=== PATIENT | female | born 1980 | race American Indian/Alaskan Native ===

== ENCOUNTER 2019-01-07 19:53 | Emergency (ER) | payer OTHER ==
[2019-01-07] MEDS ORDERED: DUONEB *Not for PRN Use IH ONE (20:42)
--- NOTE | 2019-01-07 20:43 | Event Note ---
ED Screening Note Date of service: 01/07/19 Time: 20:40 ED Screening Note: This is a 38 y.o. F. that presents to the ER with SOB since last night that is worsening. Nonsmoker LMP 12/28/2018 Received breathing treatment by EMS earlier today at home. This initial assessment/diagnostic orders/clinical plan/treatment(s) is/are subject to change based on patients health status, clinical progression and re- assessment by fellow clinical providers in the ED. Further treatment and workup at subsequent clinical providers discretion. Patient/guardian urged not to elope from the ED as their condition may be serious if not clinically assessed and managed. Initial orders include: CXR, duoneb
--- NOTE | 2019-01-07 21:31 | XRay Report ---
PROCEDURE: XR CHEST ROUTINE 2V TECHNIQUE: PA and lateral chest radiographs were obtained. HISTORY: SOB COMPARISONS: None. FINDINGS: Heart: Normal. Mediastinum/Vessels: Normal. Lungs/Pleural space: Normal. Bony thorax: No acute osseous abnormality. IMPRESSION: No acute cardiopulmonary process seen.. This document is electronically signed by Riya Farnsworth MD., January 07 2019 09:29:47 PM ET
[2019-01-07] MEDS ORDERED: DECADRON IV ONE (22:53)
[2019-01-07] MEDS ORDERED: PROVENTIL IH ONE (22:53)
[2019-01-07] MEDS ORDERED: IBUPROFEN PO ONE (22:53)
[2019-01-07 23:34] LABS: INR 1.02 (0.87-1.13)
[2019-01-07 23:35] LABS: Partial Thromboplastin Time 27.2 Sec. (24.2-36.6)
[2019-01-07 23:37] LABS: Alanine Aminotransferase 10 units/L (7-56); Albumin 3.6 g/dL (3.9-5); BUN/Creatinine Ratio 8; Blood Urea Nitrogen 6 mg/dL (7-17); Calcium 9.6 mg/dL (8.4-10.2); Hemolysis Index 9
[2019-01-08 00:01] LABS: Hematocrit 28.2 % (30.3-42.9); Mean Corpuscular HGB Conc 32 % (30-34); Mean Corpuscular Volume 73 fl (79-97); Platelet Count 275 K/mm3 (140-440); Red Blood Count 3.86 M/mm3 (3.65-5.03); Red Cell Distribution Width 17.7 % (13.2-15.2)
--- NOTE | 2019-01-08 00:31 | Emergency Department Report ---
ED Shortness of Breath HPI - General Chief Complaint: Dyspnea/Respdistress Stated Complaint: SHORTNESS OF BREATH Time Seen by Provider: 01/07/19 20:39 Source: patient Mode of arrival: Ambulatory Limitations: No Limitations - History of Present Illness Initial Comments: pt is a 38 y/o aaf who presents for sob x 1 day sudden onset this after noon no hx of asthma no fever no chills no trauma. symptoms are temporarily relieved by albuterol inhaler, symptom are exacerbated by activity. MD Complaint: shortness of breath Onset/Timin Severity: moderate Pain Scale: 6 Quality: sharp Consistency: constant Improves With: bronchodilators Worsens With: exertion, movement Associated Symptoms: pain with inspiration Treatments Prior to Arrival: none - Related Data Previous Rx's Medication Instructions Recorded Last Taken Type Cyclobenzaprine [Flexeril] 10 mg PO Q8H PRN #21 tablet 06/18/15 Unknown Rx Ibuprofen [Motrin 800 MG tab] 800 mg PO Q8HR PRN #30 tablet 06/18/15 Unknown Rx Acetaminophen/Codeine [Tylenol #3] 1 tab PO Q6H PRN #20 tab 08/17/15 Unknown Rx Naproxen [Naprosyn TAB] 500 mg PO BID #30 tablet 08/17/15 Unknown Rx methOCARBAMOL [Robaxin TAB] 500 mg PO Q6H PRN #20 tablet 08/17/15 Unknown Rx ALBUTEROL Inhaler (OR & NICU) 2 puff IH QID PRN #1 inhalation 01/08/19 Unknown Rx [ProAir HFA Inhaler] Azithromycin [Zithromax Z-ANAND] 250 mg PO DAILY #6 tab 01/08/19 Unknown Rx Ibuprofen [Motrin 800 MG tab] 800 mg PO Q8HR PRN #30 tablet 01/08/19 Unknown Rx Allergies Allergy/AdvReac Type Severity Reaction Status Date / Time No Known Allergies Allergy Unverified 06/18/15 11:30 ED Review of Systems ROS: Stated complaint: SHORTNESS OF BREATH Other details as noted in HPI Constitutional: denies: chills, fever Eyes: denies: eye pain, eye discharge, vision change ENT: denies: ear pain, throat pain Respiratory: shortness of breath, SOB at rest. denies: cough, stridor, wheezing Cardiovascular: dyspnea on exertion Endocrine: no symptoms reported Gastrointestinal: as per HPI. denies: abdominal pain, nausea, vomiting Genitourinary: denies: urgency, dysuria, discharge Musculoskeletal: denies: back pain, joint swelling, arthralgia Skin: denies: rash, lesions Neurological: denies: headache, weakness, paresthesias Psychiatric: denies: anxiety, depression Hematological/Lymphatic: denies: easy bleeding, easy bruising ED Past Medical Hx - Past Medical History Previous Medical History?: No - Surgical History Past Surgical History?: No - Social History Smoking Status: Never Smoker Substance Use Type: None - Medications Home Medications: Home Medications Medication Instructions Recorded Confirmed Last Taken Type Cyclobenzaprine [Flexeril] 10 mg PO Q8H PRN #21 tablet 06/18/15 Unknown Rx Ibuprofen [Motrin 800 MG tab] 800 mg PO Q8HR PRN #30 tablet 06/18/15 Unknown Rx Acetaminophen/Codeine [Tylenol #3] 1 tab PO Q6H PRN #20 tab 08/17/15 Unknown Rx Naproxen [Naprosyn TAB] 500 mg PO BID #30 tablet 08/17/15 Unknown Rx methOCARBAMOL [Robaxin TAB] 500 mg PO Q6H PRN #20 tablet 08/17/15 Unknown Rx ALBUTEROL Inhaler (OR & NICU) 2 puff IH QID PRN #1 inhalation 01/08/19 Unknown Rx [ProAir HFA Inhaler] Azithromycin [Zithromax Z-ANAND] 250 mg PO DAILY #6 tab 01/08/19 Unknown Rx Ibuprofen [Motrin 800 MG tab] 800 mg PO Q8HR PRN #30 tablet 01/08/19 Unknown Rx ED Physical Exam - General Limitations: No Limitations General appearance: alert, in no apparent distress - Head Head exam: Present: atraumatic, normocephalic - Eye Eye exam: Present: normal appearance, PERRL, EOMI Pupils: Present: normal accommodation - ENT ENT exam: Present: mucous membranes moist - Neck Neck exam: Present: normal inspection, full ROM. Absent: tenderness, meningismus, lymphadenopathy, thyromegaly - Respiratory Respiratory exam: Present: normal lung sounds bilaterally, chest wall te nderness, decreased breath sounds. Absent: respiratory distress, wheezes, rales, rhonchi, stridor - Cardiovascular Cardiovascular Exam: Present: regular rate, normal rhythm, normal heart sounds. Absent: systolic murmur, diastolic murmur, rubs, gallop - GI/Abdominal GI/Abdominal exam: Present: soft, normal bowel sounds. Absent: distended, tenderness, bruit, hernia - Rectal Rectal exam: Present: deferred - Extremities Exam Extremities exam: Present: normal inspection, full ROM, normal capillary refill. Absent: tenderness, pedal edema, joint swelling, calf tenderness - Back Exam Back exam: Present: normal inspection, full ROM. Absent: tenderness, CVA tenderness (R), CVA tenderness (L), muscle spasm, paraspinal tenderness, vertebral tenderness, rash noted - Neurological Exam Neurological exam: Present: alert, oriented X3, CN II-XII intact, normal gait, reflexes normal. Absent: motor sensory deficit - Psychiatric Psychiatric exam: Present: normal affect, normal mood - Skin Skin exam: Present: warm, dry, intact, normal color. Absent: rash ED Course Vital Signs 01/07/19 01/07/19 01/07/19 20:13 23:20 23:56 Temperature 98.2 F Pulse Rate 104 H Pulse Rate [ 87 100 H Bilateral Throughout] Respiratory 17 Rate Respiratory 18 18 Rate [Bilateral Throughout] Blood Pressure 127/77 O2 Sat by Pulse 96 Oximetry ED Medical Decision Making - Lab Data Result diagrams: 01/07/19 23:07 01/07/19 23:07 Labs 01/07/19 01/07/19 01/07/19 23:07 23:07 23:07 WBC 10.6 RBC 3.86 Hgb 9.0 L Hct 28.2 L MCV 73 L MCH 23 L MCHC 32 RDW 17.7 H Plt Count 275 Lymph % (Auto) Laminator Preforms [place] % (Auto) Laminator Preforms Eos % (Auto) Laminator Preforms Baso % (Auto) Laminator Preforms Lymph # Laminator Preforms [place] # Laminator Preforms Eos # Laminator Preforms Baso # Laminator Preforms Seg Neutrophils % Laminator Preforms Seg Neutrophils # Laminator Preforms PT 13.1 INR 1.02 APTT 27.2 D-Dimer 651.04 H Sodium 138 Potassium 3.4 L Chloride 101.7 Carbon Dioxide 24 Anion Gap 16 BUN 6 L Creatinine 0.8 Estimated GFR > 60 BUN/Creatinine Ratio 8 Glucose 142 H Calcium 9.6 Total Bilirubin < 0.20 AST 16 ALT 10 Alkaline Phosphatase 94 Total Protein 7.4 Albumin 3.6 L Albumin/Globulin Ratio 0.9 HCG, Qual 01/07/19 23:55 WBC RBC Hgb Hct MCV MCH MCHC RDW Plt Count Lymph % (Auto) [place] % (Auto) Eos % (Auto) Baso % (Auto) Lymph # [place] # Eos # Baso # Seg Neutrophils % Seg Neutrophils # PT INR APTT D-Dimer Sodium Potassium Chloride Carbon Dioxide Anion Gap BUN Creatinine Estimated GFR BUN/Creatinine Ratio Glucose Calcium Total Bilirubin AST ALT Alkaline Phosphatase Total Protein Albumin Albumin/Globulin Ratio HCG, Qual Negative - Radiology Data Radiology results: report reviewed, image reviewed Patient: PATRICK DAVISON MR#: [id number] : 1980 Acct:[id number] Age/Sex: 38 / F ADM Date: 01/07/19 Loc: ED Attending Dr: Ordering Physician: RAHUL LOYA Date of Service: 01/07/19 Procedure(s): XR chest routine 2V Accession Number(s): [id number] cc: RAHUL LOYA Fluoro Time In Minutes: PROCEDURE: XR CHEST ROUTINE 2V TECHNIQUE: PA and lateral chest radiographs were obtained. HISTORY: SOB COMPARISONS: None. FINDINGS: Heart: Normal. Mediastinum/Vessels: Normal. Lungs/Pleural space: Normal. Bony thorax: No acute osseous abnormality. IMPRESSION: No acute cardiopulmonary process seen.. This document is electronically signed by Riya Farnsworth MD., January 07 2019 09:29:47 PM ET Transcribed By: [facility] Dictated By: RIYA FARNSWORTH MD Electronically Authenticated By: RIYA FARNSWORTH MD Signed Date/Time: 01/07/192130 DD/ 01 TD/TT: 01/07/192101 - Medical Decision Making PERC score:7.5, cxr: normal no opacities no infiltrates, Patient: PATRICK DAVISON MR#: [id number] : 1980 Acct:[id number] Age/Sex: 38 / F ADM Date: 01/07/19 Loc: ED Attending Dr: Ordering Physician: JAQUI HENDRIX NP Date of Service: 01/08/19 Procedure(s): CT chest w con Accession Number(s): [id number] cc: JAQUI HENDRIX NP PROCEDURE: CT chest with contrast. TECHNIQUE: Computerized axial tomography of the chest was performed during the IV injection of iodinated nonionic contrast. CT DOSE LENGTH PRODUCT: 941.1 mGycm HISTORY: Shortness of breath, chest pain. COMPARISONS: None. FINDINGS: The trachea and central bronchi appear normal. There are 2 small nodular opacities in the right middle lobe. One is located centrally. The other is pleural-based. The central nodule measures 7.9 mm x 4.3 mm in cross-section. These nodules are not calcified. They are also not highly suspicious. They are indeterminate findings. A follow-up study is recommended to document clearing or stability. There is a small area of consolidation involving the anteromedial portion of the right middle lobe. This could represent pneumonia. The remaining portions of both lungs are clear. There are no pleural effusions. The thoracic aorta has a normal caliber without evidence of dissection. The central pulmonary arteries enhance normally. This study was not done to evaluate for pulmonary embolism. There is no mediastinal adenopathy. The heart size is normal. The adrenal glands are not enlarged. There is a ventral wall hernia in the epigastrium containing fat. There are calcified gallstones visible. The thoracic skeleton appears intact. IMPRESSION: Possible small area of pneumonia in the right middle lobe. 2 small indeterminate nodules in the right middle lobe. Cholelithiasis. Midline ventral wall hernia containing fat. This document is electronically signed by Rico Cullen MD., January 08 2019 01:10:54 AM ET Transcribed By: [facility] Dictated By: RICO CULLEN MD Electronically Authenticated By: RICO CULLEN MD Signed Date/Time: 01/08/19112 DD/ TD/TT: 01/08/1932 Critical care attestation.: If time is entered above; I have spent that time in minutes in the direct care of this critically ill patient, excluding procedure time. ED Disposition Clinical Impression: Pulmonary nodules CAP (community acquired pneumonia) Qualifiers: Laterality: right Lung location: middle lobe of lung Qualified Code(s): J18.1 - Lobar pneumonia, unspecified organism Disposition: DC-01 TO HOME OR SELFCARE Is pt being admited?: No Does the pt Need Aspirin: No Condition: Stable Instructions: Community-acquired Pneumonia (ED), Pulmonary Nodules (ED) Prescriptions: Ibuprofen [Motrin 800 MG tab] 800 mg PO Q8HR PRN #30 tablet PRN Reason: pain fever ALBUTEROL Inhaler (OR & NICU) [ProAir HFA Inhaler] 2 puff IH QID PRN #1 inhalation PRN Reason: Shortness Of Breath Azithromycin [Zithromax Z-ANAND] 250 mg PO DAILY #6 tab Referrals: HORACIO CHUA MD [Staff Physician] - 3-5 Days Forms: Work/School Release Form(ED) Time of Disposition: 01:40
--- NOTE | 2019-01-08 01:13 | Cat Scan Report ---
PROCEDURE: CT chest with contrast. TECHNIQUE: Computerized axial tomography of the chest was performed during the IV injection of iodin ated nonionic contrast. CT DOSE LENGTH PRODUCT: 941.1 mGycm HISTORY: Shortness of breath, chest pain. COMPARISONS: None. FINDINGS: The trachea and central bronchi appear normal. There are 2 small nodular opacities in the right middl e lobe. One is located centrally. The other is pleural-based. The central nodule measures 7.9 mm x 4. 3 mm in cross-section. These nodules are not calcified. They are also not highly suspicious. They are indeterminate findings. A follow-up study is recommended to document clearing or stability. There is a small area of consolidation involving the anteromedial portion of the right middle lobe. This coul d represent pneumonia. The remaining portions of both lungs are clear. There are no pleural effusions . The thoracic aorta has a normal caliber without evidence of dissection. The central pulmonary arter ies enhance normally. This study was not done to evaluate for pulmonary embolism. There is no mediast inal adenopathy. The heart size is normal. The adrenal glands are not enlarged. There is a ventral wa ll hernia in the epigastrium containing fat. There are calcified gallstones visible. The thoracic ske leton appears intact. IMPRESSION: Possible small area of pneumonia in the right middle lobe. 2 small indeterminate nodules in the right middle lobe. Cholelithiasis. Midline ventral wall hernia containing fat. This document is electronically signed by Rico Dominique MD., January 08 2019 01:10:54 AM ET
[2019-01-08] MEDS ORDERED: ROCEPHIN/NS 1 GM/50 ML 1 GM/50 ML BAG IV ONE (01:35)
[2019-01-08 02:51] VITALS: BP 132/84
[2019-01-08 06:53] LABS: Anisocytosis 1+; Basophils % (Manual) 0 % (0.0-1.8); Platelet Estimate Consistent w Auto; Total Cells Counted 100
== END 2019-01-08 02:38 | disposition home or self-care (01) ==
LOC: ED 19:53
DX: J18.1 Lobar pneumonia, unspecified organism (principal); R91.1 Solitary pulmonary nodule; Z79.899 Other long term (current) drug therapy
CPT/HCPCS: 36415; 71046; 71260; 80053; 84703; 85007; 85025; 85379; 85610; 85730; 93005; 93010; 94640; 96365; 96375; 99285; J0696; J1100; Q9967